=== PATIENT | female | born 1995 | race Caucasian/White ===

== ENCOUNTER 2016-12-03 16:05 | Emergency (ER) | payer OTHER ==
[~2016-12-03] VITALS: Wt 45.5 kg
[~2016-12-03 16:05] MED LIST: ACET500C5 PO; CALC600T11 PO; Ibuprofen PO; ONDA8TAB14 PO; PRENAT PO
--- NOTE | 2016-12-03 19:17 | ERD ---
ER Documentation Chief Complaint Date/Time DATE: 12/03/16 TIME: 19:12 Chief Complaint BILAT EAR PAIN, ONSET 2 DAYS, COUGH, FEVER AT HOME HPI 21-year-old female who is A0 comes in 12 weeks with cough, fever bilateral ear pain for 2 days. Patient reports a temperature maximum of 102. Patient reports that nonproductive cough, no vomiting or diarrhea. Patient's OB care has been regular, she states that she had an ultrasound done where she was told that she was 5 weeks and 5 days on ultrasound, she does not have any pelvic pain, vaginal bleeding or abdominal pain. ROS All systems reviewed and are negative except as per history of present illness. Medications Home Meds Active Scripts Amoxicillin* (Amoxicillin*) 500 Mg Cap, 500 MG PO TID for 7 Days, CAP Prov:WESLY MACEDO PA-C 12/03/16 Acetaminophen* (Tylophen*) 500 Mg Capsule, 1 CAP PO Q6H Y for PAIN AND OR ELEVATED TEMP, #15 CAP Prov:ESTEFANÍA BEST MD 08/27/16 Ondansetron (Ondansetron Odt) 8 Mg Tab.rapdis, 8 MG PO Q6H Y for NAUSEA AND/OR VOMITING, #10 TAB Prov:ESTEFANÍA BEST MD 08/27/16 [Ibuprofen] 600 MG TAB No Conflict Check, 600 MG PO Q6, #20 TAB 0 Refills Prov:FATOU BLAS MD 12/31/15 Reported Medications Calcium Carbonate* (Calcium Carbonate*) 600 MG Ca Tab, 600 MG PO DAILY, TAB 11/12/15 Multivit/Min/Fol Ac/Iron/Pren* ( S*) 1 Tab Tab, 1 TAB PO DAILY, TAB 11/12/15 Allergies Allergies: Coded Allergies: No Known Drug Allergy (Verified Allergy, Mild, 12/03/16) PMhx/Soc History of Surgery: No Anesthesia Reaction: No Hx Neurological Disorder: Yes (HX OF VIRAL MENINGITIS 2004) Hx Respiratory Disorders: No Hx Cardiac Disorders: No Hx Psychiatric Problems: No Hx Miscellaneous Medical Probl: No Hx Alcohol Use: No Hx Substance Use: No Hx Tobacco Use: No Physical Exam Vitals Vital Signs Date Time Temp Pulse Resp B/P Pulse Ox O2 Delivery O2 Flow Rate FiO2 12/03/16 16:39 97.2 104 18 122/76 99 Physical Exam General: Well-developed, well-nourished. The patient appears in no acute distress. HEENT: Head is normocephalic, atraumatic. No scleral icterus. Pupils are equal , round, and reactive. Oral mucous membranes are moist. No pharyngeal erythema. Neck: Supple. Nontender. Lungs: Clear to auscultation. Normal air movement. Heart: Regular rate and rhythm. S1 and S2 are normal. No murmurs, gallops, or rubs. Abdomen: Soft, nontender, nondistended. Bowel sounds are normoactive. Extremities: No clubbing or cyanosis. Normal pulses. Moving extremities x 4. No weakness. Neurologic: Alert and oriented 3. No focal deficits. Skin: Normal turgor. No rash or lesions. Results 24 hrs Current Medications Medications (Trade) Dose Ordered Sig/[place] Route PRN Reason Start Time Stop Time Status Last Admin Dose Admin Acetaminophen (Tylenol Tab) 650 mg ONCE ONCE PO 12/03/16 19:30 12/03/16 19:31 DC 12/03/16 19:15 Procedures/MDM ED course: Patient was given Tylenol for pain. Influenza swabs were taken. These were negative. MDM: 21-year-old female comes in with flu type symptoms, influenza was negative. Patient will be treated for possibly underlying bronchitis given her . She does not have evidence of shortness of breath, sepsis, and I doubt pneumonia. She has been asked to take Tylenol for pain, and hydrated and rest. Departure Diagnosis: Primary Impression: Acute URI Condition: WESLY Vasquez PA-C Dec 03, 2016 19:16
[2016-12-03] MEDS ORDERED: ACETAMINOPHEN 325 MG TAB PO ONE (19:30)
[2016-12-03] MEDS ORDERED: AMO500 PO (19:54)
== END 2016-12-03 20:09 | disposition home or self-care (01) ==
LOC: FTE 16:05
DX: O99.511 Diseases of the respiratory system complicating pregnancy, first trimester (principal); J06.9 Acute upper respiratory infection, unspecified; Z3A.12 12 weeks gestation of pregnancy
CPT/HCPCS: 87400; Z7502; Z7610; 99283

== ENCOUNTER 2017-06-07 11:52 | Outpatient (CLI) | payer OTHER ==
[~2017-06-07] VITALS: Ht 162.6 cm; Wt 57.9 kg
[~2017-06-07 11:52] MED LIST changes: +AMO500 PO
[2017-06-07 12:00] VITALS: Ht 162.6 cm; Wt 57.9 kg
[2017-06-07 12:01] VITALS: BP 111/59
[2017-06-07] MEDS ORDERED: LACTATED RINGER'S 1,000 ML IV ONE ×2 (13:00→14:30)
[2017-06-07 13:14] LABS: ABNORMAL IP MESSAGE 1; BASOPHILS % 0.1 % (0.0-2.0); HEMOGLOBIN 11.6 g/dl (12.0-16.0); LYMPHOCYTES # 0.8 10^3/ul (0.8-2.9); LYMPHOCYTES % 7.8 % (15.0-51.0); MEAN CORPUSCULAR HEMOGLOBIN 30.1 pg (29.0-33.0); MEAN CORPUSCULAR HGB CONC 34.1 g/dl (32.0-37.0); MEAN CORPUSCULAR VOLUME 88.3 fl (82.0-101.0); MONOCYTE # 0.4 10^3/ul (0.3-0.9); MONOCYTES % 3.7 % (0.0-11.0); NEUTROPHIL # 9.5 10^3/ul (1.6-7.5); NEUTROPHILS % 87.8 % (39.0-77.0); PLATELET COUNT 132 10^3/UL (140-415); RED BLOOD COUNT 3.85 10^6/ul (4.20-5.40); RED CELL DISTRIBUTION WIDTH 13.3 % (11.5-14.5); WHITE BLOOD COUNT 10.8 10^3/ul (4.8-10.8)
[2017-06-07 13:15] LABS: MEAN PLATELET VOLUME 13.1 fl (7.4-10.4); POSITIVE DIFF @See below
--- NOTE | 2017-06-07 13:27 | RADRPT ---
PROCEDURE: OB ultrasound for biophysical profile CLINICAL INDICATION: Nausea and vomiting TECHNIQUE: Multiple sonographic images of the pelvis were obtained. Transabdominal views of the g ravid uterus are available for review. The images were reviewed on a PACS workstation. COMPARISON: None FINDINGS: breathing movement = 2/2 tone = 2/2 motion = 2/2 MARC = 2/2 MARC = 7.3 cm Single live intrauterine with cardiac activity of 156 bpm. position is cephal ic. The placenta is posterior. IMPRESSION: 1. Single live intrauterine gestation. 2. Biophysical profile = 8/8. 3. MARC = 7.3 cm. RPTAT: HH .Nirmala Lipscomb MD, MD Date Time Electronically viewed and signed by .Nirmala Lipscomb MD, on 06/07/2017 13:26 .G/
[2017-06-07 13:36] LABS: ALBUMIN 3.7 g/dl (3.3-4.9); BILIRUBIN,INDIRECT 0.2 mg/dl (0-1.1); BILIRUBIN,TOTAL 0.2 mg/dl (0.2-1.3); CALCIUM 9.2 mg/dl (8.4-10.2); CREATININE 0.76 mg/dl (0.44-1.00); POTASSIUM 4.4 mmol/L (3.5-5.1); TOTAL PROTEIN 7.4 g/dl (6.1-8.1)
--- NOTE | 2017-06-07 15:59 | RADRPT ---
PROCEDURE: US evaluation of amniotic fluid volume. CLINICAL INDICATION: Low amniotic fluid volume. Follow-up following intravenous hydration. TECHNIQUE: Multiple sonographic images of the gravid uterus were obtained utilizing prescott-scale yousif ging. Sagittal and transverse images were obtained. The images were reviewed on a PACS workstation . MARC was measured. COMPARISON: No prior studies are available for comparison. FINDINGS: There is a single live intrauterine . heart rate is 132 beats per minute. Position is cephalic. Placenta is anterior grade II with no abruption or previa. MARC is 7.4 cm. (Normal = 5-20 cm.) IMPRESSION: 1. MARC is 7.4 cm. RPTAT: QQ .Epifanio Gaytan MD, MD Date Time Electronically viewed and signed by .Epifanio Gaytan MD, on 06/07/2017 15:59 .R/
--- NOTE | 2017-06-07 16:35 | PN ---
Triage Information Date/Time Weeks of Gestation 35+wks GA : 2 Para: 1 Diabetes: none Diabetes management: diet controlled Hypertention: none Additional information Nausea and vomiting Objective Vital Signs Date Time Temp Pulse Resp B/P Pulse Ox O2 Delivery O2 Flow Rate FiO2 06/07/17 12:01 98.2 111/59 Room Air Heart Rate: 140's Contractions: None Results/Medications Result Diagram: 06/07/17 1300 06/07/17 1300 Results 24 hrs Laboratory Tests Test 06/07/17 13:00 White Blood Count 10.8 Red Blood Count 3.85 L Hemoglobin 11.6 L Hematocrit 34.0 L Mean Corpuscular Volume 88.3 Mean Corpuscular Hemoglobin 30.1 Mean Corpuscular Hemoglobin Concent 34.1 Red Cell Distribution Width 13.3 Platelet Count 132 L Mean Platelet Volume 13.1 #H Neutrophils % 87.8 H Lymphocytes % 7.8 L Monocytes % 3.7 Eosinophils % 0.0 Basophils % 0.1 Nucleated Red Blood Cells % 0.0 Neutrophils # 9.5 H Lymphocytes # 0.8 Monocytes # 0.4 Eosinophils # 0.0 Basophils # 0.0 Nucleated Red Blood Cells # 0.0 Sodium Level 142 Potassium Level 4.4 Chloride Level 105 Carbon Dioxide Level 23 Anion Gap 18 H Blood Urea Nitrogen 12 Creatinine 0.76 Glucose Level 76 Calcium Level 9.2 Total Bilirubin 0.2 Direct Bilirubin 0.00 Indirect Bilirubin 0.2 Aspartate Amino Transf (AST/SGOT) 30 Alanine Aminotransferase (ALT/SGPT) 21 Alkaline Phosphatase 126 H Total Protein 7.4 Albumin 3.7 Globulin 3.70 H Albumin/Globulin Ratio 1.00 Assessment/Plan MARC 7.4 Receive IV Hydration Feels improved No more Nausea and vomiting -->Discharged with precautions -->PO hydration is recommended --->Labor precautions discussed --->Return to Hospital in 2 days for NS P MELO PALOMO M.D. Jun 07, 2017 16:35
--- NOTE | 2017-06-07 16:49 | TRIAGE ---
OB Triage Datetime Report Generated by CPN: 06/07/2017 16:49 Datetime: 06/07/2017 15:00 Stage of : OB Triage Labor Evaluation Frequency: 0 Monitor Mode: External Pattern: Normal: <= 5 Contractions in 10 Minutes Resting Tone [place]: Relaxed Heart Rate FHR Baseline Rate: 135 Variability: Moderate 6-25 bpm Accelerations: 15X15 Decelerations: None Category: Category I Pain Presence: None/Denies Datetime: 06/07/2017 14:11 Stage of : OB Triage Labor Evaluation Frequency: x1 Monitor Mode: External Duration (sec)2399: 30-40 Pattern: Normal: <= 5 Contractions in 10 Minutes Resting Tone [place]: Relaxed Heart Rate FHR Baseline Rate: 135 Monitor Mode: External US Variability: Moderate 6-25 bpm Accelerations: 15X15 Decelerations: None Category: Category I Pain Presence: None/Denies Datetime: 06/07/2017 12:28 Stage of : OB Triage Assessment Type: Triage Maternal Assessment Level of Consciousness: Fully Conscious DTR's/Clonus: DTRs 2+; No Clonus Headache: Denies Blurred Vision: No Respiratory Effort: Unlabored; Regular Rhythm; Equal Expansion Breath Sounds, Left: Clear and Equal Breath Sounds, Right: Clear and Equal Nausea/Vomiting: Present RUQ Epigastric Pain: Denies Lower Extremities Edema: None Degree: None Upper Extremities Edema: None Degree: None Facial Edema: None Temperature Route: Oral Fall Risk Assessment History of Falling: (0) No Secondary Diagnosis: (0) No Ambulatory Aid: (0) Bedrest/Nurse Assist IV Therapy: (0) No Gait: (0) Normal/Bedrest/Immobile Mental Status: (0) Oriented to Own Ability Fall Score: 0 Fall Risk Score Definition: No Risk: No action required Labor Evaluation Frequency: 0 Monitor Mode: External Heart Rate FHR Baseline Rate: 135 Monitor Mode: External US Variability: Moderate 6-25 bpm Accelerations: 15X15 Decelerations: None Category: Category I Pain Assessment Pain Scale: 5 Pain Presence: Intermittent Pain Type: Ache Pain Location: Abdomen Datetime: 06/07/2017 12:26 Time of Arrival: 06/07/2017 11:50 EGA: 35.5 Arrived By: Wheelchair Arrived From: Home Chief Complaint: C/O ABD PAIN AND VOMMITING Movement: Present Contractions: Denies/Absent Rupture of Membranes: Denies Vaginal Discharge: Denies Recent Sexual Intercouse: Denies Abdominal Trauma: Not Applicable Patient Complaints: Nausea; Vomiting Time Provider Notified: 06/07/2017 12:34 Provider Notified: DR. MATUTE Initial Plan: EFMJeromy, CALL
== END 2017-06-07 16:50 | disposition home or self-care (01) ==
LOC: OBT 11:52 → L-D 11:53 → OBT 16:50
PROVIDERS: ATTEND Obstetrics & Gynecology
DX: O21.0 Mild hyperemesis gravidarum (principal); Z3A.35 35 weeks gestation of pregnancy; O24.410 Gestational diabetes mellitus in pregnancy, diet controlled
CPT/HCPCS: 76815; 76818; 80053; 85025; J7120; 36415; 96360; 96361; G0463

== ENCOUNTER 2017-06-09 12:55 | Outpatient (CLI) | payer OTHER ==
[~2017-06-09] VITALS: Ht 162.6 cm; Wt 58.1 kg
[2017-06-09 13:24] VITALS: BP 117/70; PULSE 66; RESP 16
[2017-06-09] MEDS ORDERED: FERR236T PO (13:26)
[2017-06-09] MEDS ORDERED: PRENAT PO (13:26)
--- NOTE | 2017-06-09 13:56 | RADRPT ---
PROCEDURE: OB ultrasound for biophysical profile CLINICAL INDICATION: Biophysical profile. . TECHNIQUE: Obstetrical ultrasound for biophysical profile. Transabdominal views are obtained. COMPARISON: 06/07/2017 FINDINGS: Single intrauterine gestation. Presentation: Cephalic. Placenta: Fundal - posterior No evidence of placental abruption. No evidence of placenta previa. breathing movement = 2/2 tone = 2/2 motion = 2/2 MARC = 2/2 MARC = 9.4 cm, previously 7.3 cm heart rate: 152 beats per minute IMPRESSION: Single intrauterine gestation. Biophysical profile 06/25 MARC = 9.4 cm, previously 7.3 cm RPTAT: AADD .Anirudh Cabrera MD, MD Date Time Electronically viewed and signed by .Anirudh Cabrera MD, on 06/09/2017 13:55 .B/
--- NOTE | 2017-06-09 15:12 | QN ---
Documentation Comment iup 36 weeks dfm vss exam wnl us wnl a.p iup 36 weeks dfm resolved dc home MANUEL LOPEZ MD Jun 09, 2017 15:12
--- NOTE | 2017-06-09 18:01 | TRIAGE ---
OB Triage Datetime Report Generated by CPN: 06/09/2017 18:00 Datetime: 06/09/2017 15:07 Labor Evaluation Frequency: NONE Monitor Mode: External Pattern: Normal: <= 5 Contractions in 10 Minutes Resting Tone [place]: Relaxed Heart Rate FHR Baseline Rate: 120 Monitor Mode: External US FHR Baseline Changes: No Baseline Change Variability: Moderate 6-25 bpm Accelerations: 15X15 Decelerations: None Datetime: 06/09/2017 15:00 Labor Evaluation Frequency: x3 Monitor Mode: External Duration (sec)2399: 50-90 Quality: Mild Pattern: Normal: <= 5 Contractions in 10 Minutes Resting Tone [place]: Relaxed Heart Rate FHR Baseline Rate: 120 Monitor Mode: External US FHR Baseline Changes: No Baseline Change Variability: Marked >25 bpm Accelerations: 15X15 Decelerations: None Category: Category I Datetime: 06/09/2017 14:00 Labor Evaluation Frequency: x1 Monitor Mode: External Duration (sec)2399: 90 Quality: Mild Pattern: Normal: <= 5 Contractions in 10 Minutes Resting Tone [place]: Relaxed Heart Rate FHR Baseline Rate: 120 Monitor Mode: External US FHR Baseline Changes: No Baseline Change Variability: Moderate 6-25 bpm Accelerations: 15X15 Decelerations: None Category: Category I Datetime: 06/09/2017 13:26 Time of Arrival: 06/09/2017 12:52 EGA: 36.0 Arrived By: Ambulatory Arrived From: Home Chief Complaint: FOLLOW UP NST/MARC PT ALSO REPORTS DECREASED MOVEMENT, AND OCCASIONAL LOWER ABDOMINAL CRAMPING - LASTING 5 MIN UTES Movement: Decreased Contractions: Denies/Absent Rupture of Membranes: Denies Vaginal Bleeding: None Vaginal Discharge: Denies Recent Sexual Intercouse: Denies Abdominal Trauma: Not Applicable Patient Complaints: Cramping Initial Plan: EFM x2, BPP Datetime: 06/07/2017 12:28 Fall Risk Assessment Fall Score: 0 Fall Risk Score Definition: No Risk: No action required Datetime: 06/07/2017 12:26 EGA: 35.5
== END 2017-06-09 15:30 | disposition home or self-care (01) ==
LOC: OBT 12:55 → L-D 12:56 → NST 13:07 → L-D 13:08 → OBT 15:30
PROVIDERS: ATTEND Obstetrics & Gynecology
DX: O36.8130 Decreased fetal movements, third trimester, not applicable or unspecified (principal); Z3A.36 36 weeks gestation of pregnancy
CPT/HCPCS: 76818; Z7500; G0463

== ENCOUNTER 2017-06-18 11:05 | Outpatient (CLI) | payer OTHER ==
[~2017-06-18] VITALS: Ht 162.6 cm; Wt 57.4 kg
[~2017-06-18 11:05] MED LIST changes: -ACET500C5 PO; -AMO500 PO; -CALC600T11 PO; +FERR236T PO; -Ibuprofen PO; -ONDA8TAB14 PO
--- NOTE | 2017-06-18 11:44 | RADRPT ---
PROCEDURE: OB ultrasound for biophysical profile CLINICAL INDICATION: Contractions TECHNIQUE: Multiple sonographic images of the pelvis were obtained. Transabdominal views of the g ravid uterus are available for review. The images were reviewed on a PACS workstation. COMPARISON: None FINDINGS: breathing movement = 2/2 tone = 2/2 motion = 2/2 MARC = 2/2 MARC = 8.9 cm Single live intrauterine with cardiac activity of 150 bpm. position is cephal ic. The placenta is posterior. IMPRESSION: 1. Single live intrauterine gestation. 2. Biophysical profile = 06/25. 3. MARC = 8.9 cm. RPTAT: HH .Nirmala Lipscomb MD, MD Date Time Electronically viewed and signed by .Nirmala Lipscomb MD, on 06/18/2017 11:43 .G/
[2017-06-18 11:54] VITALS: Ht 162.6 cm; Wt 57.4 kg
[2017-06-18 11:55] VITALS: BP 120/77; PULSE 71; RESP 20
[2017-06-18] MEDS ORDERED: CALC600T11 PO (12:39)
--- NOTE | 2017-06-18 12:58 | CONS ---
Date/Time of Note Date/Time of Note DATE: 06/18/17 TIME: 12:52 Consultation Date/Type/Reason Admit Date/Time June 18, 2017 OB triage consult Reason for Consultation This patient is a 21 years old 2 para 1 living 1 with estimated date of confinement of July 07 which makes her 37 weeks and 2 days. She came to the hospital complaining of the vaginal spotting and contractions. This patient was seen last week due to low MARC of 7.3 On examination she is a well-developed well-nourished lady near term. Her general vital signs were basically normal with blood pressure 120/77 pulse rate 71,, respiration 20, temperature 98.3 and oxygen saturation of 96% in room temperature, heart tone was around 135 bpm Abdomen was ,soft very rare contractions, heart tone was normal. . A pelvic examination was performed; the cervix was closed thick and no evidence of a blood was seen on the glove Constitutional: No chills, No diaphoresis, No disoriented, No febrile, No improved, No no complaints, No other, No poor po, No requiring IVF, No requiring O2 Eyes: No discharge, No no complaints, No other, No pain, No redness, No visual change ENT: No bleeding, No congestion, No discharge, No dysphagia, No no complaints, No other, No pain, No sore throat Respiratory: No cough, No no complaints, No other, No pain, No pleuritic pain, No shortness of breath, No sputum, No wheezing Cardiovascular: No chest pain, No edema, No lightheadedness, No no complaints, No orthopenea, No other, No palpitations, No paroxysmal nocturnal dyspnea Gastrointestinal: No blood, No constipation, No decreased appetite, No diarrhea , No flatus, No nausea, No no complaints, No other, No pain, No passing stool, No vomiting Genitourinary: other (As I mentioned on pelvic examination the cervix was closed long no evidence of rupture membrane), No bleeding, No discharge, No dysuria, No flank pain, No hematuria, No no complaints Neurologic: other (Knee-jerk reflex was normal), No confusion, No dizziness, No focal-weakness, No headache, No no complaints , No seizure, No syncope Endocrine: No dry skin, No no complaints, No other, No polydypsia, No polyuria , No temp intolerance Psychological: No anxiety, No confusion, No depression, No nl mood/affect, No no complaints, No other, No suicidal Additional Comments We did an ultrasound study the report was a single live intrauterine with heart activity 150 bpm fetus in cephalic presentation with posterior placenta her amniotic fluid index was 8.9 cm with biophysical profile 06/25. Disposition with this positive findings with no evidence of labored reassurance given for the patient and she was discharged home to be followed in the clinic she is advised to return to labor delivery room in case of labor or vaginal bleeding. Social History Smoking Status: Never smoker Exam/Review of Systems Vital Signs Vitals Vital Signs Date Time Temp Pulse Resp B/P Pulse Ox O2 Delivery O2 Flow Rate FiO2 06/18/17 11:55 98.3 71 20 120/77 96 Room Air SIXTO NAVARRO MD Jun 18, 2017 12:58
== END 2017-06-18 12:51 | disposition home or self-care (01) ==
LOC: OBT 11:05 → L-D 11:05 → OBT 12:51
PROVIDERS: ATTEND Obstetrics & Gynecology
DX: O26.853 Spotting complicating pregnancy, third trimester (principal); Z3A.37 37 weeks gestation of pregnancy
CPT/HCPCS: 76818; Z7500; G0463

== ENCOUNTER 2017-06-23 09:49 | Inpatient (IN) | payer OTHER ==
[~2017-06-23] VITALS: Ht 162.6 cm; Wt 58.2 kg
[~2017-06-23 09:49] MED LIST changes: +CALC600T11 PO
[2017-06-23 09:59] VITALS: BP 109/67; PULSE 64; RESP 16; Ht 162.6 cm; Wt 58.2 kg
[2017-06-23] MEDS ORDERED: LACTATED RINGER'S 1,000 ML IV SCH (10:23)
[2017-06-23] MEDS ORDERED: METHYLERGONOVINE 0.2 MG INJ IM PRN ×2 (10:30→17:30)
[2017-06-23] MEDS ORDERED: LIDOCAINE 1% (MPF) 30 ML INJ INJ PRN (10:30)
[2017-06-23] MEDS ORDERED: BUTORPHANOL 2 MG INJ IV PRN (10:30)
[2017-06-23] MEDS ORDERED: OXYTOCIN 30 UNITS/LR 500 ML IV PRN ×2 (10:30→17:30)
[2017-06-23] MEDS ORDERED: MINERAL OIL LIGHT 10 ML VIAL TOP PRN (10:30)
[2017-06-23] MEDS ORDERED: IBUPROFEN 600 MG TAB PO PRN (10:30)
[2017-06-23] MEDS ORDERED: AMPICILLIN 2 GM/NS (PMX) 100 ML IV ONE (10:30)
[2017-06-23] MEDS ORDERED: MISOPROSTOL 200 MCG TAB PR PRN ×2 (10:30→17:30)
[2017-06-23] MEDS ORDERED: ACETAMINOPHEN/CODEINE #3 TAB PO PRN ×3 (10:30→17:30)
[2017-06-23] MEDS ORDERED: CARBOPROST 250 MCG INJ IM PRN ×2 (10:30→17:30)
[2017-06-23] MEDS ORDERED: LACTATED RINGER'S 1,000 ML IV PRN (11:00)
--- NOTE | 2017-06-23 11:35 | TRIAGE ---
OB Triage Datetime Report Generated by CPN: 06/23/2017 11:35 Datetime: 06/23/2017 11:30 Labor Evaluation Frequency: 2-6 Monitor Mode: External Duration (sec)2399: 60-140 Quality: Strong Pattern: Normal: <= 5 Contractions in 10 Minutes Resting Tone [place]: Relaxed Heart Rate FHR Baseline Rate: 125 Monitor Mode: External US Variability: Moderate 6-25 bpm Accelerations: 15X15 Decelerations: None Category: Category I Pain Assessment Pain Scale: 8 Pain Presence: Intermittent Pain Type: Contraction Pain Location: Abdomen Pain Goal: 3 Datetime: 06/23/2017 10:50 Stage of : Labor Datetime: 06/23/2017 10:31 Labor Evaluation Frequency: 3-5 Monitor Mode: External Duration (sec)2399: 50-90 Quality: Moderate Pattern: Normal: <= 5 Contractions in 10 Minutes Resting Tone [place]: Relaxed Heart Rate FHR Baseline Rate: 125 Monitor Mode: External US Variability: Moderate 6-25 bpm Accelerations: 15X15 Decelerations: None Category: Category I Pain Assessment Pain Scale: 8 Pain Presence: Intermittent Pain Type: Contraction Pain Location: Abdomen Pain Goal: 3 Datetime: 06/23/2017 10:06 Assessment Type: Triage Maternal Assessment Level of Consciousness: Fully Conscious DTR's/Clonus: DTRs 2+; No Clonus Headache: Denies Blurred Vision: No Respiratory Effort: Unlabored; Regular Rhythm; Equal Expansion Breath Sounds, Left: Clear and Equal Breath Sounds, Right: Clear and Equal Nausea/Vomiting: Denies RUQ Epigastric Pain: Denies Lower Extremities Edema: None Degree: None Upper Extremities Edema: None Degree: None Facial Edema: None Fall Risk Assessment History of Falling: (0) No Secondary Diagnosis: (0) No Ambulatory Aid: (0) Bedrest/Nurse Assist IV Therapy: (0) No Gait: (0) Normal/Bedrest/Immobile Mental Status: (0) Oriented to Own Ability Fall Score: 0 Fall Risk Score Definition: No Risk: No action required Datetime: 06/23/2017 10:02 Time of Arrival: 06/23/2017 09:35 EGA: 38.0 Arrived By: Ambulatory Arrived From: Home Chief Complaint: Pt. came to hospital c/o uc since last night 1100pm, q5-10mins apart, pain level 8/10, deny srom, deny vag. bleeding Movement: Present Contractions: Regular Rupture of Membranes: Denies Vaginal Bleeding: None Vaginal Discharge: Denies Recent Sexual Intercouse: Denies Abdominal Trauma: Not Applicable Patient Complaints: Contractions Time Provider Notified: 06/23/2017 10:14 Provider Notified: Initial Plan: r/o labor Datetime: 06/23/2017 09:52 Vaginal Exam Dilatation (cms): 2.5 Effacement (%): 70 Station: -3 Exam By: wliu Datetime: 06/18/2017 17:41 Time of Arrival: 06/18/2017 11:03 EGA: 37.2 Arrived By: Ambulatory Arrived From: Home Chief Complaint: SPOTTING ON UNDERWEAR THIS MORNING , PT REPORTS VAGINAL PRESSURE 7/10 Movement: Present Contractions: Denies/Absent Rupture of Membranes: Denies Vaginal Bleeding: None Vaginal Discharge: Denies Recent Sexual Intercouse: Denies Abdominal Trauma: Not Applicable Patient Complaints: None Additional Patient Complaints: PT REPORTS HX OF LOW MARC OF 7.0 LAST WEEK Time Provider Notified: 06/18/2017 12:04 Provider Notified: DR. GARZA Initial Plan: SVE AND CALL MD Datetime: 06/18/2017 12:01 Stage of : OB Triage Assessment Type: Triage Maternal Assessment Level of Consciousness: Fully Conscious DTR's/Clonus: DTRs 2+; No Clonus Headache: Denies Blurred Vision: No Respiratory Effort: Unlabored; Regular Rhythm; Equal Expansion Breath Sounds, Left: Clear and Equal Breath Sounds, Right: Clear and Equal Nausea/Vomiting: Denies RUQ Epigastric Pain: Denies Lower Extremities Edema: None Degree: None Upper Extremities Edema: None Degree: None Facial Edema: None Temperature Route: Axillary Fall Risk Assessment History of Falling: (0) No Secondary Diagnosis: (0) No Ambulatory Aid: (0) Bedrest/Nurse Assist IV Therapy: (0) No Gait: (0) Normal/Bedrest/Immobile Mental Status: (0) Oriented to Own Ability Fall Score: 0 Fall Risk Score Definition: No Risk: No action required Pain Assessment Pain Scale: 7 Pain Presence: Intermittent Pain Type: Pressure Pain Location: Perineum Pain Goal: 2 Pain Relief Measures: Comfort Measures Datetime: 06/18/2017 12:00 Maternal Assessment Level of Consciousness: Fully Conscious DTR's/Clonus: DTRs 2+; No Clonus Headache: Denies Blurred Vision: No Respiratory Effort: Unlabored; Regular Rhythm; Equal Expansion Breath Sounds, Left: Clear and Equal Breath Sounds, Right: Clear and Equal Nausea/Vomiting: Denies RUQ Epigastric Pain: Denies Facial Edema: None Fall Risk Assessment History of Falling: (0) No Secondary Diagnosis: (0) No Ambulatory Aid: (0) Bedrest/Nurse Assist IV Therapy: (0) No Gait: (0) Normal/Bedrest/Immobile Mental Status: (0) Oriented to Own Ability Fall Score: 0 Fall Risk Score Definition: No Risk: No action required Datetime: 06/18/2017 11:58 Labor Evaluation Frequency: IRREG Monitor Mode: External Duration (sec)2399: 50-80 Quality: Mild Pattern: Normal: <= 5 Contractions in 10 Minutes Resting Tone [place]: Relaxed Heart Rate FHR Baseline Rate: 125 Monitor Mode: External US Variability: Moderate 6-25 bpm Accelerations: 15X15 Decelerations: None Category: Category I Datetime: 06/18/2017 11:57 Labor Evaluation Frequency: 0 Monitor Mode: External Duration (sec)2399: 0 Quality: Mild Contraction Comments: NO UC'S NOTED PT DENIES UC'S Heart Rate FHR Baseline Rate: 125 Monitor Mode: External US Variability: Moderate 6-25 bpm Accelerations: 15X15 Decelerations: None Category: Category I Comments: NST REACTIVE FOR GESTATIONAL AGE Datetime: 06/18/2017 11:29 Comments: ultrasound at the bedsdie Datetime: 06/09/2017 13:26 EGA: 36.0 Datetime: 06/07/2017 12:28 Fall Score: 0 Fall Risk Score Definition: No Risk: No action required Datetime: 06/07/2017 12:26 EGA: 35.5
[2017-06-23 11:50] LABS: ABNORMAL IP MESSAGE 1; BASOPHILS % 0.3 % (0.0-2.0); EOSINOPHILS % 0.2 % (0.0-7.0); HEMATOCRIT 40.2 % (37.0-47.0); HEMOGLOBIN 13.5 g/dl (12.0-16.0); LYMPHOCYTES % 21.4 % (15.0-51.0); MEAN CORPUSCULAR HGB CONC 33.6 g/dl (32.0-37.0); MEAN CORPUSCULAR VOLUME 89.3 fl (82.0-101.0); MEAN PLATELET VOLUME 13.5 fl (7.4-10.4); MONOCYTE # 0.5 10^3/ul (0.3-0.9); MONOCYTES % 5.7 % (0.0-11.0); NEUTROPHIL # 6.8 10^3/ul (1.6-7.5); NEUTROPHILS % 71.6 % (39.0-77.0); PLATELET COUNT 154 10^3/UL (140-415); RED CELL DISTRIBUTION WIDTH 14.3 % (11.5-14.5); WHITE BLOOD COUNT 9.5 10^3/ul (4.8-10.8)
[2017-06-23 11:51] LABS: POSITIVE DIFF @See below
[2017-06-23 12:04] LABS: INR 0.92; PROTIME 12.4 Sec (12.2-14.2)
[2017-06-23 12:05] LABS: PARTIAL THROMBOPLASTIN TIME 30.9 Sec (25.0-35.0)
[2017-06-23] MEDS ORDERED: AMPICILLIN 1 GM/NS (PMX) 50 ML IV SCH (14:30)
[2017-06-23] MEDS ORDERED: MEPERIDINE 25 MG INJ IV ONE (14:30)
--- NOTE | 2017-06-23 14:50 | HP ---
Date/Time of Note Date/Time of Note DATE: 06/23/17 TIME: 14:47 OB - History Hx of Present Free Text/Dictation 21-year-old female 2 para 1 at term admitted complaining of liver pain started at 8:00 in the morning Chief Complaint: Labor pains Estimated Due Date: Jul 07, 2017 : 2 Para: 1 Care: Good Care Ultrasounds: Normal mid trimester US Obstetrical Complications: None Medical Complications: None Past Family/Social History * Past Medical, Surgical, Family and Obstetric Histories reviewed from chart. Blood Type: A+ Rubella: immune RPR/VDRL: Negative GBS Status: Unknown HBsAG: Negative OB Admission Exam Vital Signs Vital Signs Vital Signs Date Time Temp Pulse Resp B/P Pulse Ox O2 Delivery O2 Flow Rate FiO2 06/23/17 09:59 97.6 64 16 109/67 Physical Exam HEENT: WNL Heart: Rhythm Normal Lungs: Clear, Equal Abdomen: WNL Extremities: Normal Reflexes: Normal Cervical Dilatation: 4cm Effacement: 100% Station: -3 Membranes: Intact Heart Rate: 140's Accelerations: Accelerations Present Decelerations: No Decelerations Varibility: Marked Contractions on Admission: < 5 Minutes Apart Date/Time Contractions Began: 06/23/2017 0 800 a.m. Frequency of Contractions: Every 5 minute Duration: Over 62nd Intensity: Firm Last 72 hours Lab Results CBC & BMP 06/23/17 11:11 OB Assessment/Plan Reason for admission: active labor Other Assessment: Term gestation Other plan: Proceed with labor and delivery FATOU BLAS MD Jun 23, 2017 14:50
--- NOTE | 2017-06-23 14:52 | LDN ---
Date/Time of Note Date/Time of Note DATE: 06/23/17 TIME: 14:50 Delivery Summary Spontaneous vaginal delivery of a viable over intact perineum Weeks of Gestation 38 weeks Placenta Delivered: Spontaneously, Intact & Complete Meconium: none Episiotomy: No Perineal laceration: 1 Laceration repair: Superficial perineal laceration was repaired with running stitches of 2-0 chromic and 3 vestibular lacerations were repaired using 4-0 chromic Anesthesia type: Local Estimated blood loss: 300 Sponge & Needle done & correct: Yes All needle counts correct: Yes Any foreign bodies felt in the: No Problems: Infant Delivery Information Sex Sex: male Apgars 5 Minute: 9 Suctioning Nose & mouth suctioned at shaheen: Yes Delee suction performed: No Umbilical Cord Umbilical cord with: 3 Vessels Cord presentations: no nuchal cord Cord Blood was obtained: Yes Mother & Baby Disposition Disposition Mom & Baby to Maternity; Good: Yes (Mother and baby were recovered in good condition) Mom transferred to: Other (Maternity) Baby to NICU: No FATOU BLAS MD Jun 23, 2017 14:52
[2017-06-23] MEDS: OXYTOCIN 30 UNITS/LR 500 ML IV SCH ×3 (15:13→23:00)
[2017-06-23 16:50] VITALS: BP 126/65; PULSE 55; RESP 17
[2017-06-23] MEDS: LACTATED RINGER'S 1,000 ML IV* SCH ×2 (17:17→19:27)
[2017-06-23 17:20] VITALS: BP 124/67; PULSE 57; RESP 17
[2017-06-23] MEDS ORDERED: BENZOCAINE 20% 56 ML SPRAY TOP PRN (17:30)
[2017-06-23] MEDS ORDERED: LANOLIN 7 GM TUBE TOP PRN (17:30)
[2017-06-23] MEDS ORDERED: ZOLPIDEM 5 MG TAB PO PRN (17:30)
[2017-06-23] MEDS ORDERED: DIBUCAINE 1% 30 GM OINT PR PRN (17:30)
[2017-06-23] MEDS ORDERED: WITCH HAZEL/GLYCERIN PAD PR PRN (17:30)
[2017-06-23] MEDS: IBUPROFEN 600 MG TAB PO SCH (18:04)
[2017-06-23 19:20] VITALS: BP 128/78; RESP 20
[2017-06-23] MEDS: MAGNESIUM HYDROXIDE 30ML CUP PO SCH (21:08)
[2017-06-23] MEDS: SENNA/DOCUSATE NA (8.6MG/50MG) TAB PO SCH (21:08)
[2017-06-24] MEDS: IBUPROFEN 600 MG TAB PO SCH ×4 (00:03→17:37)
[2017-06-24] MEDS: OXYTOCIN 30 UNITS/LR 500 ML IV SCH (03:00)
[2017-06-24 04:18] VITALS: BP 109/65; PULSE 70; RESP 19
[2017-06-24 07:44] LABS: BASOPHILS % 0.3 % (0.0-2.0); EOSINOPHILS % 0.3 % (0.0-7.0); HEMATOCRIT 34.4 % (37.0-47.0); HEMOGLOBIN 11.6 g/dl (12.0-16.0); LYMPHOCYTES # 2.8 10^3/ul (0.8-2.9); LYMPHOCYTES % 21.7 % (15.0-51.0); MEAN CORPUSCULAR HEMOGLOBIN 29.9 pg (29.0-33.0); MEAN CORPUSCULAR HGB CONC 33.7 g/dl (32.0-37.0); MEAN CORPUSCULAR VOLUME 88.7 fl (82.0-101.0); MEAN PLATELET VOLUME 12.8 fl (7.4-10.4); MONOCYTE # 0.7 10^3/ul (0.3-0.9); MONOCYTES % 5.5 % (0.0-11.0); NEUTROPHIL # 9.2 10^3/ul (1.6-7.5); NEUTROPHILS % 71.6 % (39.0-77.0); PLATELET COUNT 126 10^3/UL (140-415); RED BLOOD COUNT 3.88 10^6/ul (4.20-5.40); RED CELL DISTRIBUTION WIDTH 14.3 % (11.5-14.5); WHITE BLOOD COUNT 12.9 10^3/ul (4.8-10.8)
[2017-06-24 08:00] VITALS: BP 103/57; PULSE 76; RESP 17
[2017-06-24] MEDS: MAGNESIUM HYDROXIDE 30ML CUP PO SCH ×2 (09:05→21:00)
[2017-06-24] MEDS: SENNA/DOCUSATE NA (8.6MG/50MG) TAB PO SCH ×2 (09:05→21:00)
[2017-06-24 12:00] VITALS: BP 98/55; PULSE 72; RESP 16
[2017-06-24 16:16] VITALS: BP 99/56; PULSE 64; RESP 17
--- NOTE | 2017-06-24 17:57 | DS ---
Date/Time of Note Date/Time of Note Home next day DATE: 06/24/17 TIME: 17:56 Obstetrical Discharge Record Final Diagnosis Final Diagnosis: Term delivered Other Final Diagnosis Status post vaginal delivery Vaginal Delivery Obstetrical Delivery: Spontaneous, Laceration, Repaired Condition on Discharge Physical Assessment Last Vitals: See nurse's notes Voiding: Yes Bowel Movement: Yes Breast: Soft, non-tender, Filling Fundus: Firm Abdomen and Incision: Soft bowel sounds positive Episiotomy: Perineum is healing Calf Tenderness: No Patient Condition: Good FATOU BLAS MD Jun 24, 2017 17:57
--- NOTE | 2017-06-24 17:58 | PD.PPDC ---
CONSULTING INTERN Discharge Instruction Provider Information Physician Information 21-year-old female had vaginal delivery Diagnosis Final Diagnosis: Status post vaginal delivery Condition Patient Condition: Good Diet Diet: Resume Regular Diet Activity/Restrictions Activity: Normal Activity May Shower Restrictions: Nothing in the Vagina Return to Work or School: Aug 12, 2017 Follow-up Follow-up with Physician: 4, Week/Weeks (In clinic) Return to clinic for OB Instructions: Breast Tenderness Depression FATOU BLAS MD Jun 24, 2017 17:58
[2017-06-24] MEDS ORDERED: IBUP-1542 PO (17:59)
[2017-06-24 19:20] VITALS: BP 110/68; PULSE 67; RESP 19
[2017-06-25] MEDS: IBUPROFEN 600 MG TAB PO SCH ×3 (00:20→13:21)
[2017-06-25 04:00] VITALS: BP 105/59; PULSE 60; RESP 19
[2017-06-25 08:30] VITALS: BP 97/56; PULSE 58; RESP 17
[2017-06-25] MEDS ORDERED: VARICELLA VACCINE LIVE/PF 1,350 UNIT/0.5 ML ML SC* ONE (09:00)
[2017-06-25] MEDS ORDERED: MEASLES,MUMPS,RUBELLA VACCINE INJ SC* ONE (09:00)
[2017-06-25] MEDS ORDERED: DIPHTH/TET/ACEL PERTUSS (ADULT) 0.5 ML VIAL IM* ONE (09:00)
[2017-06-25] MEDS: SENNA/DOCUSATE NA (8.6MG/50MG) TAB PO SCH (10:11)
[2017-06-25] MEDS: MAGNESIUM HYDROXIDE 30ML CUP PO SCH (10:11)
== END 2017-06-25 14:55 | disposition home or self-care (01) | DRG 775 ==
LOC: OBT 09:49 → L-D 09:50 → OBT 10:14 → L-D 10:14 → PP1 16:43
PROVIDERS: ADMIT Obstetrics & Gynecology; ATTEND Obstetrics & Gynecology
PROC: 10E0XZZ Delivery of Products of Conception, External Approach (ICD-10-PCS; principal; 2017-06-23)
PROC: 0HQ9XZZ Repair Perineum Skin, External Approach (ICD-10-PCS; 2017-06-23)
DX: O70.0 First degree perineal laceration during delivery (principal); Z37.0 Single live birth; Z3A.38 38 weeks gestation of pregnancy
CPT/HCPCS: 85025; 85610; 85730; 86592; 86900; 86901; 87340; 90715; 90716; G0463; J0290; J2175; J2590; J7120

== ENCOUNTER 2017-10-04 01:05 | Emergency (ER) | payer OTHER ==
[~2017-10-04] VITALS: Ht 162.6 cm; Wt 47.9 kg
[~2017-10-04 01:05] MED LIST changes: -CALC600T11 PO; +CALC600T24 PO; +IBUP-1542 PO
[2017-10-04 01:06] VITALS: Ht 162.6 cm; Wt 47.9 kg
[2017-10-04 02:13] LABS: URINE BLOOD (Dip) POC Negative (NEGATIVE)
--- NOTE | 2017-10-04 02:49 | ERD ---
ER Documentation Chief Complaint Chief Complaint c/o upper abd pain with n/v/d. HPI The patient is a 22-year-old female, presenting to the ER because of vomiting, diarrhea that began about 6 PM. She denies any hematemesis, hematochezia. She complains of minimal epigastric abdominal discomfort after she vomited, denies dysuria, polyuria. She does not smoke nor drink Past medical history: Migraine Past medical history: None ROS All systems reviewed and are negative except as per history of present illness. Medications Home Meds Active Scripts Loperamide Hcl* (Imodium*) 2 Mg Capsule, 2 MG PO .AFTER EA LOOSE BM Y for DIARRHEA, #10 TAB Prov:ELAINA TIMMONS MD 10/04/17 Ondansetron (Ondansetron Odt) 4 Mg Tab.rapdis, 4 MG PO Q6H Y for NAUSEA AND/OR VOMITING, #10 TAB Prov:ELAINA TIMMONS MD 10/04/17 Cephalexin* (Keflex*) 500 Mg Capsule, 500 MG PO QID for 10 Days, CAP Prov:ELAINA TIMMONS MD 10/04/17 Ibuprofen* (Ibuprofen*) 600 Mg Tablet, 600 MG PO Q6, #30 TAB 0 Refills Prov:FATOU BLAS MD 06/24/17 Reported Medications Calcium Carbonate* (Calcium Carbonate*) 600 MG Ca Tab, 600 MG PO, TAB 06/18/17 Ferrous Gluconate (Iron) 236 Mg Tablet, 236 MG PO DAILY, TAB 06/09/17 Multivit/Min/Fol Ac/Iron/Pren* ( S*) 1 Tab Tab, 1 TAB PO DAILY, TAB 06/09/17 Allergies Allergies: Coded Allergies: No Known Drug Allergy (Verified Allergy, Mild, 12/03/16) PMhx/Soc History of Surgery: No Anesthesia Reaction: No Hx Neurological Disorder: Yes (HX OF VIRAL MENINGITIS 2004) Hx Respiratory Disorders: No Hx Cardiac Disorders: No Hx Psychiatric Problems: No Hx Miscellaneous Medical Probl: No Hx Alcohol Use: No Hx Substance Use: Yes (marijuana) Hx Tobacco Use: No Smoking Status: Never smoker Physical Exam Vitals Vital Signs Date Time Temp Pulse Resp B/P Pulse Ox O2 Delivery O2 Flow Rate FiO2 10/04/17 02:14 97.3 62 18 108/67 100 Room Air 10/04/17 01:06 97.3 89 18 115/58 98 Physical Exam Const: No acute distress.Dehydrated Head: Atraumatic. Eyes: Normal Conjunctiva. ENT: Normal External Ears, Nose and Mouth. Neck: Full range of motion. No meningismus. Resp: Clear to auscultation bilaterally. Cardio: Regular rate and rhythm. Abd: Soft, non distended, normal bowel sounds, non tender. Skin: No petechiae or rashes. Back: No midline or flank tenderness. Ext: No cyanosis, or edema. Neur: Awake and alert. No focal deficit Psych: Normal Mood and Affect. Result Diagram: 10/04/1720910/04/17209 Results 24 hrs Laboratory Tests Test 10/04/17 02:10 10/04/17 02:12 White Blood Count 12.010^3/ul Red Blood Count 4.6310^6/ul Hemoglobin 13.7g/dl Hematocrit 40.5% Mean Corpuscular Volume 87.5fl Mean Corpuscular Hemoglobin 29.6pg Mean Corpuscular Hemoglobin Concent 33.8g/dl Red Cell Distribution Width 12.7% Platelet Count 44915^3/UL Mean Platelet Volume 10.3fl Neutrophils % 88.9% Lymphocytes % 5.7% Monocytes % 4.5% Eosinophils % 0.3% Basophils % 0.2% Nucleated Red Blood Cells % 0.0/100WBC Neutrophils # 10.710^3/ul Lymphocytes # 0.710^3/ul Monocytes # 0.510^3/ul Eosinophils # 0.010^3/ul Basophils # 0.010^3/ul Nucleated Red Blood Cells # 0.010^3/ul Sodium Level 146mmol/L Potassium Level 3.6mmol/L Chloride Level 110mmol/L Carbon Dioxide Level 19mmol/L Anion Gap 21 Blood Urea Nitrogen 20mg/dl Creatinine 0.62mg/dl Glucose Level 103mg/dl Calcium Level 9.9mg/dl Total Bilirubin 0.3mg/dl Direct Bilirubin 0.00mg/dl Indirect Bilirubin 0.3mg/dl Aspartate Amino Transf (AST/SGOT) 28IU/L Alanine Aminotransferase (ALT/SGPT) 27IU/L Alkaline Phosphatase 93IU/L Total Protein 8.2g/dl Albumin 4.9g/dl Globulin 3.30g/dl Albumin/Globulin Ratio 1.48 Lipase 62U/L Bedside Urine pH (LAB) 6.0 Bedside Urine Protein (LAB) 2+ Bedside Urine Glucose (UA) Negative Bedside Urine Ketones (LAB) 3+ Bedside Urine Blood Negative Bedside Urine Nitrite (LAB) Negative Bedside Urine Leukocyte Esterase (L 1+ Current Medications Medications (Trade) Dose Ordered Sig/[place] Route PRN Reason Start Time Stop Time Status Last Admin Dose Admin Sodium Chloride (NS) 1,000 ml @ 1,000 mls/hr Q1H STAT IV 10/04/17 02:53 10/04/17 03:52 DC 10/04/17 03:04 Morphine Sulfate (morphine) 2 mg ONCE STAT IV 10/04/17 02:53 10/04/17 02:54 DC 10/04/17 03:03 Ondansetron HCl 4 mg 4 mg ONCE STAT IV 10/04/17 02:53 10/04/17 02:54 DC 10/04/17 03:03 Sodium Chloride (NS) 1,000 ml @ 1,000 mls/hr Q1H ONCE IV 10/04/17 03:00 10/04/17 03:59 DC 10/04/17 03:07 Procedures/MDM MEDICAL MAKING DECISION: The patient is a 22-year-old female, presenting with acute vomiting diarrhea, acute cystitis, acute dehydration. She was treated with 2 L normal saline for clinical dehydration, Zofran 4 mg IV for nausea and morphine 2 mg IV for her pain with good response. On multiple reevaluation, she felt well, repeat abdominal exams were unremarkable The differential diagnoses considered include but are not limited to cholelithiasis, cholecystitis, cystitis, pancreatitis, hepatitis, gastritis, peptic ulcer disease, gastric ulcer, appendicitis, diverticulitis, cholangitis, choledocholithiasis, partial small bowel obstruction. Departure Diagnosis: Primary Impression: Vomiting and diarrhea Additional Impressions: Dehydration UTI (urinary tract infection) Condition: Good Comments She was discharged with Keflex, Imodium, Zofran I discussed the findings with the patient. I advised the patient to follow-up with the primary physician in about 1-2 days, sooner if needed and return if any concern. Disclaimer: Inadvertent spelling and grammatical errors are likely due to EHR/ dictation software use and do not reflect on the overall quality of patient care. Also, please note that the electronic time recorded on this note does not necessarily reflect the actual time of the patient encounter. ELAINA TIMMONS MD Oct 04, 2017 02:49
[2017-10-04] MEDS ORDERED: SOD CHLORIDE 0.9% 1,000 ML IV STA (02:53)
[2017-10-04] MEDS ORDERED: ONDANSETRON 4 MG INJ IV STA (02:53)
[2017-10-04] MEDS ORDERED: morphine 2 MG INJ IV STA (02:53)
[2017-10-04] MEDS ORDERED: SOD CHLORIDE 0.9% 1,000 ML IV ONE (03:00)
[2017-10-04 03:17] LABS: BASOPHILS % 0.2 % (0.0-2.0); EOSINOPHILS % 0.3 % (0.0-7.0); HEMATOCRIT 40.5 % (37.0-47.0); HEMOGLOBIN 13.7 g/dl (12.0-16.0); LYMPHOCYTES # 0.7 10^3/ul (0.8-2.9); LYMPHOCYTES % 5.7 % (15.0-51.0); MEAN CORPUSCULAR HEMOGLOBIN 29.6 pg (29.0-33.0); MEAN CORPUSCULAR HGB CONC 33.8 g/dl (32.0-37.0); MEAN CORPUSCULAR VOLUME 87.5 fl (82.0-101.0); MEAN PLATELET VOLUME 10.3 fl (7.4-10.4); MONOCYTE # 0.5 10^3/ul (0.3-0.9); MONOCYTES % 4.5 % (0.0-11.0); NEUTROPHIL # 10.7 10^3/ul (1.6-7.5); NEUTROPHILS % 88.9 % (39.0-77.0); PLATELET COUNT 238 10^3/UL (140-415); RED BLOOD COUNT 4.63 10^6/ul (4.20-5.40); RED CELL DISTRIBUTION WIDTH 12.7 % (11.5-14.5)
[2017-10-04 03:25] LABS: ALBUMIN 4.9 g/dl (3.3-4.9); ALBUMIN/GLOBULIN RATIO 1.48; BILIRUBIN,INDIRECT 0.3 mg/dl (0-1.1); BILIRUBIN,TOTAL 0.3 mg/dl (0.2-1.3); CALCIUM 9.9 mg/dl (8.4-10.2); CREATININE 0.62 mg/dl (0.44-1.00); POTASSIUM 3.6 mmol/L (3.5-5.1); TOTAL PROTEIN 8.2 g/dl (6.1-8.1)
[2017-10-04] MEDS ORDERED: CEPH-443 PO (03:59)
[2017-10-04] MEDS ORDERED: ONDA4TAB14 PO (04:00)
[2017-10-04] MEDS ORDERED: LOPE2CAP PO (04:00)
[2017-10-04 05:00] VITALS: BP 92/59; PULSE 68; RESP 18; TEMP 97.5
== END 2017-10-04 05:10 | disposition home or self-care (01) ==
LOC: E/R 01:05
DX: E86.0 Dehydration (principal); N39.0 Urinary tract infection, site not specified; R19.7 Diarrhea, unspecified; R40.2252 Coma scale, best verbal response, oriented, at arrival to emergency department; R40.2142 Coma scale, eyes open, spontaneous, at arrival to emergency department; R40.2362 Coma scale, best motor response, obeys commands, at arrival to emergency department
CPT/HCPCS: 36415; 80053; 81003; 83690; 85025; 96374; 96375; J2405; J7030; Z7502; J2270